=== PATIENT | female | born 1985 | race Caucasian/White ===

== ENCOUNTER 2021-07-13 23:44 | Emergency (ER) | payer OTHER ==
[~2021-07-13] VITALS: Ht 165.1 cm; Wt 121.1 kg
[2021-07-13] MEDS ORDERED: ZESTRIL5 MG PO (23:54)
[2021-07-13] MEDS ORDERED: HYDRODIURIL12.5 MG PO (23:55)
== END 2021-07-14 02:30 | disposition home or self-care (01) ==
LOC: ER 23:44
DX: O20.9 Hemorrhage in early pregnancy, unspecified (principal); Z3A.01 Less than 8 weeks gestation of pregnancy; Z37.0 Single live birth

== ENCOUNTER 2021-08-22 13:59 | Emergency (ER) | payer OTHER ==
[~2021-08-22] VITALS: Ht 165.1 cm; Wt 118.8 kg
[~2021-08-22 13:59] MED LIST: HYDRODIURIL12.5 MG PO; ZESTRIL5 MG PO
[2021-08-22] MEDS ORDERED: CONCEPT DHA CA1 EACH PO (14:18)
[2021-08-22] MEDS ORDERED: CEPHALEXIN500 M1 PO (18:05)
== END 2021-08-22 18:17 | disposition home or self-care (01) ==
LOC: ER 13:59
DX: O20.9 Hemorrhage in early pregnancy, unspecified (principal); Z3A.12 12 weeks gestation of pregnancy; Z20.822 Contact with and (suspected) exposure to COVID-19

== ENCOUNTER 2021-09-23 12:20 | Emergency (ER) | payer OTHER ==
[~2021-09-23] VITALS: Ht 165.1 cm; Wt 117.9 kg
[~2021-09-23 12:20] MED LIST changes: +CEPHALEXIN500 M1 PO; +CONCEPT DHA CA1 EACH PO
== END 2021-09-23 17:02 | disposition home or self-care (01) ==
LOC: ER 12:20
DX: O20.9 Hemorrhage in early pregnancy, unspecified (principal); O26.849 Uterine size-date discrepancy, unspecified trimester; O09.529 Supervision of elderly multigravida, unspecified trimester; O26.859 Spotting complicating pregnancy, unspecified trimester; Z3A.16 16 weeks gestation of pregnancy

== ENCOUNTER 2021-09-30 15:44 | Emergency (ER) | payer OTHER ==
[~2021-09-30] VITALS: Ht 165.1 cm; Wt 117.9 kg
[2021-09-30] MEDS ORDERED: ACETAMINOPHEN650 M2 PO (22:08)
[2021-09-30] MEDS ORDERED: DUI500 PO (22:08)
== END 2021-09-30 22:12 | disposition home or self-care (01) ==
LOC: ER 15:44
DX: O20.8 Other hemorrhage in early pregnancy (principal); O23.42 Unspecified infection of urinary tract in pregnancy, second trimester; N39.0 Urinary tract infection, site not specified; Z3A.18 18 weeks gestation of pregnancy

== ENCOUNTER 2021-10-23 08:57 | Outpatient (CLI) | payer OTHER ==
[~2021-10-23 08:57] MED LIST changes: +ACETAMINOPHEN650 M2 PO; +DUI500 PO
== END 2021-10-23 10:35 | disposition home or self-care (01) ==
LOC: PRENATAL 08:57
PROVIDERS: ATTEND Obstetrics & Gynecology Maternal & Fetal Medicine
DX: O35.0XX0 Maternal care for (suspected) central nervous system malformation in fetus, not applicable or unspecified (principal); O35.3XX0 Maternal care for (suspected) damage to fetus from viral disease in mother, not applicable or unspecified; O09.529 Supervision of elderly multigravida, unspecified trimester; O99.210 Obesity complicating pregnancy, unspecified trimester; O26.879 Cervical shortening, unspecified trimester; Z3A.20 20 weeks gestation of pregnancy

== ENCOUNTER 2021-10-28 22:17 | Inpatient (IN) | payer OTHER ==
[~2021-10-28] VITALS: Ht 165.1 cm; Wt 120.2 kg
--- NOTE | 2021-10-28 22:31 | NUR ---
SE RECIB EPTE ALERTA Y ORIENTADA X3 EN AMBULANCIA DE TRANSFER DEL [facility]. PTE REFIERE VENIR POR EXPULSION DE LIQUIDO AMNIOTICO. PTE CON 21 SEMANAS DE EMBARAZO. SE MIDEN S/V A PTE Y SE COLOCA EN CHERELLE.
[2021-10-29] MEDS ORDERED: PRENATAL TABLE1 EAC1 PO (02:41)
[2021-10-31] MEDS ORDERED: PROGESTERONE200 MG (10:37)
[2021-10-31] MEDS ORDERED: LISINOPRIL5 MG (10:37)
[2021-10-31] MEDS ORDERED: HYDROCHLOROTH12.5 MG (10:37)
[2021-10-31] MEDS ORDERED: FAMOTIDINE40 MG (10:37)
[2021-10-31] MEDS ORDERED: ONDANSETRON HCL4 MG (10:37)
== END 2021-10-31 12:22 | disposition home or self-care (01) | DRG 806 ==
LOC: ER 22:17 → OB/GYN 22:26
PROVIDERS: ADMIT Obstetrics & Gynecology; ATTEND Obstetrics & Gynecology
PROC: BY4CZZZ Ultrasonography of Second Trimester, Single Fetus (ICD-10-PCS; 2021-10-29)
PROC: 10E0XZZ Delivery of Products of Conception, External Approach (ICD-10-PCS; principal; 2021-10-30)
DX: O42.112 Preterm premature rupture of membranes, onset of labor more than 24 hours following rupture, second trimester (principal); O41.02X0 Oligohydramnios, second trimester, not applicable or unspecified; Z37.1 Single stillbirth; O10.02 Pre-existing essential hypertension complicating childbirth; O46.92 Antepartum hemorrhage, unspecified, second trimester; Z3A.21 21 weeks gestation of pregnancy